=== PATIENT | male | born 1980 | race Caucasian/White ===

== ENCOUNTER 2017-05-04 10:40 | Emergency (ER) | payer MEDICAID ==
[~2017-05-04] VITALS: Ht 172.7 cm; Wt 95.7 kg
--- NOTE | 2017-05-04 10:40 | NUR ---
SELF PRESENTS TO ED: SOB/ASTHMA EXACERBATION, RUN OUT OF INHALERS. PATIENT APPEARS IN MILD DITRESS. SATING WELL ON ROOM AIR.VSS
--- NOTE | 2017-05-04 10:45 | NUR ---
DUE MEDS GIVEN ORDERED
[2017-05-04] MEDS ORDERED: predniSONE 20 MG TABLET ONE (10:47)
[2017-05-04] MEDS ORDERED: ALBUTEROL FS 2.5 MG/3 ML VIAL.NEB ONE (10:51)
[2017-05-04] MEDS ORDERED: IPRATROPIUM NEB FS 0.5 MG/2.5 ML AMPUL.NEB ONE (10:52)
[2017-05-04] MEDS ORDERED: predniSONE 20 MG TABLET PO ONE (11:00)
[2017-05-04] MEDS ORDERED: IPRATROPIUM NEB FS 0.5 MG/2.5 ML AMPUL.NEB NEB ONE (11:00)
[2017-05-04] MEDS ORDERED: ALBUTEROL FS 2.5 MG/3 ML VIAL.NEB CONTNEB ONE (11:00)
--- NOTE | 2017-05-04 11:00 | NUR ---
RT AT BS FOR BREATING TX
[2017-05-04 12:03] VITALS: BP 116/73
--- NOTE | 2017-05-04 12:03 | NUR ---
Patient discharged to home in stable condition. Written and verbal after care instructions given. Patient verbalizes understanding of instruction.
== END 2017-05-04 12:04 | disposition home or self-care (01) ==
LOC: ER 10:42
DX: J45.901 Unspecified asthma with (acute) exacerbation (principal); F17.200 Nicotine dependence, unspecified, uncomplicated
CPT/HCPCS: A4606; Z7610